=== PATIENT | female | born 1985 | race Caucasian/White ===

== ENCOUNTER 2017-08-29 17:13 | Emergency (ER) | payer BC ==
[~2017-08-29] VITALS: Ht 177.8 cm; Wt 112.3 kg
[2017-08-29 17:14] VITALS: TEMP 98.3
[2017-08-29] MEDS ORDERED: GLUCOPHAGE1000 MG PO (17:18)
[2017-08-29] MEDS ORDERED: ZYRTEC-D 5 MG-11 TER PO (17:19)
[2017-08-29 17:55] LABS: PH 6 (5-8); URINE APPEARANCE Hazy; URINE BACTERIA None Seen /hpf; URINE BILIRUBIN Negative (NEGATIVE); URINE BLOOD Negative (NEGATIVE); URINE COLOR Yellow; URINE GLUCOSE Negative (NEGATIVE); URINE KETONE Negative (NEGATIVE); URINE RBC 0-2 /hpf; URINE UROBILINOGEN Negative (NEGATIVE)
[2017-08-29 18:04] LABS: BASO # 0.1 (0.0-0.2); BASO % 0.7 % (0.0-2.0); EOS # 0.8 (0.0-0.7); EOS % 5.6 % (0-4.0); GRAN # 8.3 (1.4-6.5); GRAN % 55.8 % (42.2-75.2); HEMATOCRIT 43.9 % (37.0-47.0); HEMOGLOBIN 14.5 g/dl (12.5-16.0); LYMPH # 4.5 (1.2-3.4); LYMPH % 30.4 % (20.0-51.0); MEAN CELL VOLUME 79 fl (80.0-100.0); MEAN CORPUSCULAR HEMOGLOBIN 26 pg (27.0-31.0); MEAN CORPUSCULAR HGB CONC 33 g/dl (33.0-37.0); MEAN PLATELET VOLUME 9.8 fl (7.4-10.4); MONO # 1.1 (0.1-0.6); MONO % 7.2 % (1.7-9.3); PLATELET COUNT 365 K/mm3 (130-400); RED BLOOD COUNT 5.54 M/mm3 (4.10-5.30); REDCELL DISTRIBUTION WIDTH-CV 13.1 % (11.5-14.5); WHITE BLOOD COUNT 14.9 K/mm3 (4.8-10.8)
[2017-08-29 18:17] LABS: ADJUSTED CALCIUM 9.2 mg/dL (8.4-10.2); ALBUMIN 4.5 gm/dL (3.5-5.0); BILIRUBIN,TOTAL 0.6 mg/dL (0.0-1.0); C-REACTIVE PROTEIN 2.2 mg/dL (0.0-0.9); CALCIUM 9.6 mg/dL (8.4-10.2); CREATININE, serum 0.67 mg/dL (0.52-1.25); POTASSIUM 4.1 mmol/L (3.4-5.0); TOTAL PROTEIN 7.9 gm/dL (6.4-8.2)
[2017-08-29] MEDS ORDERED: NORCO 325 MG-51 TAB PO (19:19)
[2017-08-29 19:46] VITALS: BP 146/94; PULSE 87
[2017-08-29 20:10] LABS: CHLAMYDIA/TRACH by PCR Female NOT DETECTED; NEISSERIA GON by PCR Female NOT DETECTED
[2017-08-30] MEDS ORDERED: AMOXICILLIN 8751 TAB PO (17:40)
== END 2017-08-29 19:47 | disposition home or self-care (01) ==
LOC: COL.ER 17:13
PROVIDERS: Nurse Practitioner
DX: N89.8 Other specified noninflammatory disorders of vagina (principal); E11.9 Type 2 diabetes mellitus without complications; Z79.84 Long term (current) use of oral hypoglycemic drugs; E28.2 Polycystic ovarian syndrome
CPT/HCPCS: J1170; J7030; Q9967

== ENCOUNTER 2018-06-09 13:19 | Observation (INO) | payer BC ==
[~2018-06-09] VITALS: Ht 177.8 cm; Wt 112.7 kg
[~2018-06-09 13:19] MED LIST: AMOXICILLIN 8751 TAB PO; GLUCOPHAGE1000 MG PO; NORCO 325 MG-51 TAB PO; ZYRTEC-D 5 MG-11 TER PO
[2018-06-09] MEDS ORDERED: SPRINTEC 35 MCG1 TAB PO (13:25)
[2018-06-09 13:39] LABS: COLLECTION METHOD CLEAN CATCH
[2018-06-09 13:52] LABS: MUCOUS Present /lpf; PH 6 (5-8); URINE APPEARANCE Cloudy; URINE BACTERIA Moderate /hpf; URINE BILIRUBIN Negative (NEGATIVE); URINE BLOOD Negative (NEGATIVE); URINE COLOR Amber; URINE GLUCOSE Negative (NEGATIVE); URINE KETONE Negative (NEGATIVE); URINE LEUKOCYTE ESTERASE 2+ (NEGATIVE); URINE NITRATE Negative (NEGATIVE); URINE PROTEIN(semi-quant) 1+ (NEGATIVE); URINE UROBILINOGEN >=4.0 mg/dL (NEGATIVE)
[2018-06-09 15:05] LABS: BASO # 0.1 (0.0-0.2); BASO % 0.7 % (0.0-2.0); EOS # 0.4 (0.0-0.7); EOS % 2.5 % (0-4.0); GRAN # 10.1 (1.4-6.5); GRAN % 72.9 % (42.2-75.2); HEMATOCRIT 40.8 % (37.0-47.0); HEMOGLOBIN 13.4 g/dl (12.5-16.0); LYMPH # 2.1 (1.2-3.4); LYMPH % 15.1 % (20.0-51.0); MEAN CELL VOLUME 78 fl (80.0-100.0); MEAN CORPUSCULAR HEMOGLOBIN 26 pg (27.0-31.0); MEAN CORPUSCULAR HGB CONC 33 g/dl (33.0-37.0); MEAN PLATELET VOLUME 9.3 fl (7.4-10.4); MONO # 1.2 (0.1-0.6); MONO % 8.4 % (1.7-9.3); PLATELET COUNT 379 K/mm3 (130-400); RED BLOOD COUNT 5.22 M/mm3 (4.10-5.30); REDCELL DISTRIBUTION WIDTH-CV 13.2 % (11.5-14.5)
[2018-06-09 15:17] LABS: ALANINE AMINOTRANSFERASE 63 U/L (9-52); ALBUMIN 3.8 gm/dL (3.5-5.0); ALKALINE PHOSPHATASE 70 U/L (50-136); ANION GAP 9 mmol/L (7-16); AST,SGOT 117 U/L (15-37); BILIRUBIN,TOTAL 0.8 mg/dL (0.0-1.0); BLOOD UREA NITROGEN 9 mg/dL (7-17); C-REACTIVE PROTEIN 2.3 mg/dL (0.0-0.9); CALCIUM 9.2 mg/dL (8.4-10.2); CARBON DIOXIDE 28 mmol/L (22-30); CHLORIDE 102 mmol/L (98-107); CREATININE, serum 0.63 mg/dL (0.52-1.25); GLUCOSE 127 mg/dL (74-106); POTASSIUM 4.2 mmol/L (3.4-5.0); SODIUM 139 mmol/L (137-145); TOTAL PROTEIN 7.1 gm/dL (6.4-8.2)
[2018-06-09 15:25] LABS: TROPONIN-I < 0.012 ng/mL (0.000-0.034)
[2018-06-09] MEDS ORDERED: CEPHALEXIN500 M1 PO (17:19)
[2018-06-09 21:55] VITALS: BP 170/101; PULSE 87; TEMP 98
[2018-06-09 23:33] VITALS: BP 169/94; PULSE 90; TEMP 97.4
[2018-06-10] VITALS (8 sets, daily range): BP systolic 135–151; BP diastolic 74–100; PULSE 76–109; TEMP 97.7–98.4
[2018-06-10 06:53] LABS: BASO # 0.1 (0.0-0.2); BASO % 0.7 % (0.0-2.0); EOS # 0.5 (0.0-0.7); EOS % 5.8 % (0-4.0); GRAN % 59.4 % (42.2-75.2); HEMOGLOBIN 12.3 g/dl (12.5-16.0); LYMPH # 2.1 (1.2-3.4); LYMPH % 25.3 % (20.0-51.0); MEAN CELL VOLUME 80 fl (80.0-100.0); MEAN CORPUSCULAR HEMOGLOBIN 25 pg (27.0-31.0); MEAN CORPUSCULAR HGB CONC 32 g/dl (33.0-37.0); MEAN PLATELET VOLUME 10.1 fl (7.4-10.4); MONO # 0.7 (0.1-0.6); MONO % 8.6 % (1.7-9.3); PLATELET COUNT 334 K/mm3 (130-400); RED BLOOD COUNT 4.86 M/mm3 (4.10-5.30); REDCELL DISTRIBUTION WIDTH-CV 13.4 % (11.5-14.5)
[2018-06-10 07:06] LABS: ALBUMIN 3.4 gm/dL (3.5-5.0); CALCIUM 8.6 mg/dL (8.4-10.2); CREATININE, serum 0.68 mg/dL (0.52-1.25); POTASSIUM 4.2 mmol/L (3.4-5.0); TOTAL PROTEIN 6.3 gm/dL (6.4-8.2)
[2018-06-10] MEDS ORDERED: PERCOCET 325 MG1 TA2 PO (17:05)
[2018-06-10] MEDS ORDERED: MOTRIN 600600 MG/TAB PO (17:06)
[2018-06-10] MEDS ORDERED: COLACE 100100 MG/CAP PO (17:06)
[2018-06-11 02:50] VITALS: BP 146/87; PULSE 93; TEMP 98.2
[2018-06-11 07:27] VITALS: BP 143/90; PULSE 86; TEMP 98.8
[2018-06-11 12:24] VITALS: BP 132/77; PULSE 88; TEMP 98.2
== END 2018-06-11 16:10 | disposition home or self-care (01) ==
LOC: COL.ER 13:19 → MEDICAL 19:19
PROVIDERS: Physician Assistant; Surgery
DX: K81.1 Chronic cholecystitis (principal); N39.0 Urinary tract infection, site not specified; I10 Essential (primary) hypertension; E11.9 Type 2 diabetes mellitus without complications; E28.2 Polycystic ovarian syndrome; Z79.84 Long term (current) use of oral hypoglycemic drugs; Z82.49 Family history of ischemic heart disease and other diseases of the circulatory system; Z83.3 Family history of diabetes mellitus
CPT/HCPCS: A9284; G0378; J0696; J1100; J1170; J1885; J2405; J2543; J2704; J3010; J7030; J7120; Q9967

== ENCOUNTER → 2018-06-24 | Outpatient (CLI) | payer BC ==
[~2018-06-24] MED LIST changes: +CEPHALEXIN500 M1 PO; +COLACE 100100 MG/CAP PO; +MOTRIN 600600 MG/TAB PO; +PERCOCET 325 MG1 TA2 PO; +SPRINTEC 35 MCG1 TAB PO
== END ==
LOC: MC.RAD 10:48
DX: N63.22 Unspecified lump in the left breast, upper inner quadrant (principal)